=== PATIENT | female | born 2000 ===

== ENCOUNTER 2021-12-07 14:28 | Inpatient (IN) | payer OTHER ==
[~2021-12-07] VITALS: Ht 162.6 cm; Wt 78.9 kg
[2021-12-07] MEDS ORDERED: STUACAP PO (14:50)
[2021-12-07 14:51] VITALS: BP 120/74
[2021-12-07] MEDS ORDERED: LR 1,000 ML IV SCH ×2 (16:35→19:10)
[2021-12-07] MEDS ORDERED: LIDOCAINE 1% MDV 20ML VIAL INFIL PRN (16:35)
[2021-12-07] MEDS ORDERED: OXYTOCIN DRIP 30 UNITS in IV 1 EA IV PRN ×4 (16:35)
[2021-12-07] MEDS ORDERED: OXYTOCIN DRIP 30 UNITS in IV 1 EA IV SCH ×2 (16:35→19:10)
[2021-12-07] MEDS ORDERED: HOME MED LIST COMPLETE! XX SCH (16:40)
[2021-12-07] MEDS ORDERED: ceFAZolin SOD 2 GM in IV 1 EA IV ONE (17:00)
[2021-12-07] MEDS ORDERED: BICITRA 30ML SOLN UDC PO ONE (17:05)
[2021-12-07] MEDS ORDERED: KETOROLAC 60MG 2ML VIAL As Ordered ONE (17:10)
[2021-12-07] MEDS ORDERED: OXYTOCIN INJ 10 UNITS/ML VIAL (J2590) As Ordered ONE (17:10)
[2021-12-07] MEDS ORDERED: ONDANSETRON 4MG 2ML VIAL As Ordered ONE (17:10)
[2021-12-07] MEDS ORDERED: dexameTHASONE 4 MG/ML 1ML VIAL (J1100 PER 1MG) As Ordered ONE (17:10)
[2021-12-07] MEDS ORDERED: fentaNYL 100 MCG/2 ML INJECTION As Ordered ONE (17:11)
[2021-12-07] MEDS ORDERED: MORPHINE PRES-FREE INJ 10 MG/10 ML VIAL As Ordered ONE (17:11)
[2021-12-07] MEDS ORDERED: BICITRA 30ML SOLN UDC As Ordered ONE (17:15)
[2021-12-07] MEDS ORDERED: BUPIVACAINE HCL 0.25% 10ML VIAL SC ONE (17:15)
[2021-12-07 17:47] LABS: HEMATOCRIT 35.5 % (36.0-47.0); HEMOGLOBIN 11.2 g/dl (12.0-15.5); MEAN CORPUSCULAR HEMOGLOBIN 25.9 pg (27.0-33.0); MEAN CORPUSCULAR HGB CONC 31.5 g/dl (32.0-36.5); MEAN CORPUSCULAR VOLUME 82.2 fl (80.0-96.0); PLATELET COUNT, AUTOMATED 248 10^3/uL (150-450); RED BLOOD COUNT 4.32 10^6/uL (4.00-5.40); WHITE BLOOD COUNT 11.9 10^3/uL (4.0-10.0)
[2021-12-07] MEDS: ACETAMINOPHEN 500 MG TAB PO SCH (18:00)
[2021-12-07 18:35] LABS: CORD GAS ABE A -1.9; CORD GAS HCO3 A 26.4 MEQ/L; CORD GAS O2 SAT A 34.1 %; CORD GAS PCO2 A 60.5 mmHg; CORD GAS PH A 7.257 UNITS; CORD GAS PO2 A 17.2 mmHg; CORD GAS SBC A 21.4 MEQ/L; CORD GAS TCO2 A 28.2 MEQ/L
[2021-12-07 18:36] LABS: CORD GAS ABE V -2.4; CORD GAS HCO3 V 24.4 MEQ/L; CORD GAS O2 SAT V 78.9 %; CORD GAS PCO2 V 49.6 mmHg; CORD GAS PH V 7.309 UNITS; CORD GAS SBC V 22.1 MEQ/L; CORD GAS TCO2 V 25.9 MEQ/L
[2021-12-07] MEDS ORDERED: ONDANSETRON 4MG 2ML VIAL IV PRN ×2 (18:40→19:10)
[2021-12-07] MEDS ORDERED: NALOXONE INJ 0.4MG/1ML VIAL (J2310 PER 1MG) IV PRN ×2 (18:40)
[2021-12-07] MEDS ORDERED: HYDROMORPHONE HCL 0.5 MG/ 0.5 ML SYRINGE (J1170 PER 1) IV PRN (18:40)
[2021-12-07] MEDS ORDERED: diphenhydrAMINE 50MG/ML VIAL (J1200) IV PRN (18:40)
[2021-12-07] MEDS ORDERED: oxyCODONE 5MG TAB PO PRN ×2 (18:40→19:10)
[2021-12-07] MEDS ORDERED: fentaNYL 100 MCG/2 ML INJECTION IV PRN (18:40)
[2021-12-07] MEDS ORDERED: **NOTE PATIENT COMMENT** MISC XX SCH (18:40)
[2021-12-07] MEDS ORDERED: METOCLOPRAMIDE INJ 10MG/2ML VIAL (J2765 PER 1) IV PRN (18:40)
[2021-12-07] MEDS ORDERED: SLF 3 ML SYR IV SCH (18:40)
[2021-12-07] MEDS ORDERED: MEPERIDINE INJ 25 MG/ML VIAL (J2175) IV PRN (18:40)
[2021-12-07] MEDS ORDERED: RHOGAM 300 MCG (1500 IU) INJ (J2790) IM SCH (19:10)
[2021-12-07] MEDS ORDERED: SIMETHICONE 80MG CHEW TAB PO PRN (19:10)
[2021-12-07] MEDS ORDERED: PROMETHAZINE 25 MG TAB PO PRN (19:10)
[2021-12-07] MEDS ORDERED: oxyCODONE 5MG TAB As Ordered ONE (19:32)
[2021-12-07] MEDS ORDERED: OXYTOCIN 30 UNITS IN 0.9% NaCl 500ML IV BAG (J2590) As Ordered ONE (19:33)
[2021-12-07] MEDS: oxyCODONE 5MG TAB PO PRN (19:35)
[2021-12-07 21:05] VITALS: BP 130/71
[2021-12-07] MEDS: DOCUSATE SODIUM 100MG CAPSULE PO SCH (21:26)
[2021-12-07 21:35] VITALS: BP 140/83
[2021-12-07 22:05] VITALS: BP 123/73
[2021-12-07 23:05] VITALS: BP 125/66
[2021-12-08] VITALS (7 sets, daily range): BP systolic 98–131; BP diastolic 50–65
[2021-12-08] MEDS: KETOROLAC 30 MG/ML 1ML VIAL IV SCH ×3 (00:04→13:30)
[2021-12-08] MEDS: ACETAMINOPHEN 500 MG TAB PO SCH ×4 (00:05→18:13)
[2021-12-08] MEDS ORDERED: diphenhydrAMINE 50MG/ML VIAL (J1200) IV PRN (02:50)
[2021-12-08 07:36] LABS: HEMATOCRIT 30.3 % (36.0-47.0); HEMOGLOBIN 9.7 g/dl (12.0-15.5); MEAN CORPUSCULAR HEMOGLOBIN 25.9 pg (27.0-33.0); PLATELET COUNT, AUTOMATED 215 10^3/uL (150-450); RED BLOOD COUNT 3.74 10^6/uL (4.00-5.40); WHITE BLOOD COUNT 14.7 10^3/uL (4.0-10.0)
[2021-12-08] MEDS: DOCUSATE SODIUM 100MG CAPSULE PO SCH ×2 (08:10→21:10)
[2021-12-08] MEDS: PRENATAL VITAMINS CHEWABLE TABLET PO SCH (08:10)
[2021-12-08] MEDS: oxyCODONE 5MG TAB PO PRN (19:56)
[2021-12-08] MEDS: IBUPROFEN 800 MG TAB PO SCH (21:10)
[2021-12-09] MEDS: ACETAMINOPHEN 500 MG TAB PO SCH ×2 (00:17→05:34)
[2021-12-09 02:04] VITALS: BP 120/58
[2021-12-09] MEDS: IBUPROFEN 800 MG TAB PO SCH (05:33)
[2021-12-09 06:06] VITALS: BP 115/68
[2021-12-09] MEDS ORDERED: PRENCHW PO (07:37)
[2021-12-09] MEDS ORDERED: OXYC-517 PO (07:37)
[2021-12-09] MEDS ORDERED: IBUP80TA PO (07:37)
[2021-12-09] MEDS ORDERED: COLA100C5 PO (07:37)
[2021-12-09] MEDS: DOCUSATE SODIUM 100MG CAPSULE PO SCH (08:07)
[2021-12-09] MEDS: PRENATAL VITAMINS CHEWABLE TABLET PO SCH (08:07)
[2021-12-09] MEDS ORDERED: MEASLES,MUMPS,RUBELLA VACCINE INJ (MMR-II) (90707) SC.IMMUN ONE (09:00)
== END 2021-12-09 10:20 | disposition home or self-care (01) | DRG 773 ==
LOC: M LDO 14:28 → M LDI 16:05 → M OBS 21:27
PROVIDERS: ADMIT Obstetrics & Gynecology; ATTEND Obstetrics & Gynecology
PROC: 10D00Z1 Extraction of Products of Conception, Low, Open Approach (ICD-10-PCS; principal; 2021-12-07 18:36)
DX: O48.0 Post-term pregnancy (principal); Z37.0 Single live birth; Z3A.40 40 weeks gestation of pregnancy; R63.5 Abnormal weight gain; O26.00 Excessive weight gain in pregnancy, unspecified trimester; Z88.8 Allergy status to other drugs, medicaments and biological substances; Z91.010 Allergy to peanuts; O76 Abnormality in fetal heart rate and rhythm complicating labor and delivery